=== PATIENT | female | born 1960 | race Two or more races ===

== ENCOUNTER 2017-06-08 14:37 | Emergency (ER) | payer OTHER ==
[2017-06-08 14:56] VITALS: BP 112/78; PULSE 62; TEMP 98; BMI 32.9
[2017-06-08] MEDS ORDERED: ASPIRIN 81 MG CHEWABLE TABLETS PO ONE (15:44)
--- NOTE | 2017-06-08 15:44 | PDOC ---
History of Present Illness - General History Source: Patient Exam Limitations: No Limitations - History of Present Illness Initial Comments: 06/08/17 15:46 The patient is a 56 year old female with a significant PMH of hyperlipidemia and moderate cigarette use who presents to the emergency department with generalized malaise and chest pressure beginning at approximately 2:00PM today. The patient also reports neck pain that radiated to her left shoulder beginning approximately 2-3 weeks ago that has just recently subsided. The patient took a vacation beginning on 05/19 in order to relieve her neck and shoulder pain, and recently returned to work. While at work earlier today, the patient experienced the chest pressure with associated shortness of breath and lightheadedness and was brought into the ED. The patient also reports heart palpitations within the past year, but currently does not present with palpitations. The patient denies dizziness. Denies fever, chills, nausea, vomit, diarrhea and constipation. Denies dysuria, frequency, urgency and hematuria. Allergies: NKA FHx: Diabetes Past surgical history: Knee arthroscopy. Hysterectomy. Social history: Former smoker. No reported alcohol or drug use. PCP: Dr. Lua <Salinas Moreno - Last Filed: 06/08/17 19:16> <Keron Mace - Last Filed: 06/08/17 19:25> - General Chief Complaint: Lightheaded Stated Complaint: HEAD PAIN Time Seen by Provider: 06/08/17 14:48 Past History <Salinas Moreno - Last Filed: 06/08/17 19:16> - Past Medical History Anemia: Yes (DURING ) Asthma: No Cancer: No Cardiac Disorders: No CVA: No COPD: No CHF: No Dementia: No Diabetes: No GI Disorders: No Disorders: No HTN: No Hypercholesterolemia: Yes Liver Disease: No Seizures: No Thyroid Disease: No - Surgical History Abdominal Surgery: Yes - Psycho/Social/Smoking Cessation Hx Anxiety: No Suicidal Ideation: No Smoking History: Former smoker Have you smoked in the past 12 months: Yes Number of Cigarettes Smoked Daily: 20 If you are a former smoker, when did you quit?: 05/2017 Information on smoking cessation initiated: No 'Breaking Loose' booklet given: 05/20/13 Hx Alcohol Use: No Drug/Substance Use Hx: No Substance Use Type: None Hx Substance Use Treatment: No <Keron Mace - Last Filed: 06/08/17 19:25> - Past Medical History Allergies/Adverse Reactions: Allergies Allergy/AdvReac Type Severity Reaction Status Date / Time No Known Drug Allergies Allergy Verified 06/08/17 14:57 Home Medications: Ambulatory Orders NK [No Known Home Medication] 06/08/17 Review of Systems - Review of Systems Constitutional: No: Chills, Fever HEENTM: No: Throat Swelling Respiratory: No: Cough, Shortness of Breath Cardiac (ROS): Yes: See HPI, Chest Pain, Lightheadedness, Palpitations ABD/GI: No: Diarrhea, Nausea, Vomiting Musculoskeletal: Yes: Joint Pain, Muscle Pain All Other Systems: Reviewed and Negative <Keron Mace - Last Filed: 06/08/17 19:25> *Physical Exam - Vital Signs Last Vital Signs Temp Pulse Resp BP Pulse Ox 98 F 62 18 112/78 100 06/08/17 14:47 06/08/17 14:47 06/08/17 14:47 06/08/17 14:47 06/08/17 14:47 - Physical Exam Comments: 06/08/17 15:46 GENERAL: The patient is awake, alert, and fully oriented, in no acute distress. HEAD: Normal with no signs of trauma. EYES: Pupils equal, round and reactive to light, extraocular movements intact, sclera anicteric, conjunctiva clear with no pallor. ENT: Ears normal, nares patent, oropharynx clear without exudates. Moist mucous membranes. NECK: Normal range of motion, supple without lymphadenopathy, JVD, or masses. LUNGS: Breath sounds equal, clear to auscultation bilaterally. No wheeze/ crackles. HEART: Regular rate and rhythm, normal S1 and S2 without murmur or rub. ABDOMEN: Soft/nontender/nondistended. BS wnl. No guarding or rebound. No palpable masses. No hepatosplenomegaly. EXTREMITIES: Normal range of motion, no edema. No clubbing or cyanosis. No cords, erythema, or tenderness. NEUROLOGICAL: Cranial nerves II through XII grossly intact. Normal speech, normal gait. PSYCH: Normal mood, normal affect. SKIN: Warm, Dry, normal turgor, no rashes or lesions noted. <Salians Moreno - Last Filed: 06/08/17 19:16> - Vital Signs Last Vital Signs Temp Pulse Resp BP Pulse Ox 98 F 62 18 112/78 100 06/08/17 14:47 06/08/17 14:47 06/08/17 14:47 06/08/17 14:47 06/08/17 14:47 <Keron Mace - Last Filed: 06/08/17 19:25> Heart Score/ECG Review #1 ECG reviewed & interpreted by me at: 14:53 General ECG Interpretation: Sinus Rhythm, Normal Rate (60), Normal Intervals ( qtc 436), No acute ischemic changes <Keron Mace - Last Filed: 06/08/17 19:25> ED Treatment Course - LABORATORY CBC & Chemistry Diagram: 06/08/17 15:58 06/08/17 15:58 - Consult/PCP Case discussed with consulting physician: Marcia Bentley <Salinas Moreno - Last Filed: 06/08/17 19:16> - LABORATORY CBC & Chemistry Diagram: 06/08/17 15:58 06/08/17 15:58 <Keron Mace - Last Filed: 06/08/17 19:25> Medical Decision Making - Medical Decision Making 06/08/17 15:35 A portion of this note was documented by scribe services under my direction. I have reviewed the details of the note, within reason, and agree with the documentation with the following case summary and management plan written by me. 56-year-old female with history of high cholesterol and smoking presents with episode this afternoon of chest pressure with lightheadedness. Patient has been having about 2 or 3 weeks of posterior neck discomfort radiating to her left arm , constant and nonexertional, not relieved with any medications. That pain has since resolved, she has seen Dr. Lua for feeling generally unwell and had a workup on 05/24 that was unremarkable. Pt presents today because she had acute onset of chest pressure with lightheadedness and headache while at work, has been intermittent since then. Never had chest pressure in her life, at baseline has limited exercise tolerance. No DVT or PE risk factors. Vital signs normal. No acute distress, patient experienced chest pressure during the history without any arrhythmia on monitor Exam otherwise normal 56-year-old female with high cholesterol and smoking history presents with new onset chest pressure and 2-3 weeks of feeling generally unwell with most likely musculoskeletal neck/left arm complaints. The new onset chest pressure is concerning despite normal stress test 3 or 4 months ago, her neck/arm pain may be more associated with radiculopathy. labs, ekg, cxr asa discuss with Dr. Lua, likely tele obs for cardiac monitoring 06/08/17 19:20 workup normal, negative trop and ekg. cxr normal. performed CT head given the h/o headache, no acute process and only a benign appearing pineal gland. Pt feels well, requesting discharge. Case discussed with Dr. Lua - no urgency to cardiology evaluation, was arranging f/u. Pt has cardiology appt on Monday, is ambulating comfortably. CT head negative, should have f/u MRI. Recommend MRI brain for pineal gland lesion and MRI c-spine for radicular sxs. Pt and agree with plan, will f/u with cards and Dr. Lua, understand return criteria. <Keron Mace - Last Filed: 06/08/17 19:25> *DC/Admit/Observation/Transfer - Attestations Scribe Attestion: 06/08/17 15:47 Documentation prepared by Salinas Moreno, acting as medical resident for Keron Mace MD. <Salinas Moreno - Last Filed: 06/08/17 19:16> <Keron Mace - Last Filed: 06/08/17 19:25> Diagnosis at time of Disposition: Precordial chest pain, Cervical radiculopathy - Discharge Dispostion Disposition: HOME Condition at time of disposition: Improved - Referrals Referrals: Jase Lua MD [Staff Physician] - - Patient Instructions Printed Discharge Instructions: DI for Atypical Chest Pain, DI for Cervical Radiculopathy Additional Instructions: Activity as tolerated. Stay hydrated. Blood tests, an EKG, and a chest x-ray showed no acute pathology. 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 As discussed, you should follow up with the volunteer patient representative on Monday as scheduled. Also as discussed, you should have an MRI both of the brain to further evaluate the pineal gland cyst, and also of the cervical spine to assess for possible disc disease that could be causing your neck and left arm pain. Tylenol 1000 mg every 8 hours and/or ibuprofen 600 mg every 8 hours as needed for pain. Continue your medications as previously prescribed by your physician. You should follow up with Dr. Lua as soon as possible regarding today's emergency department visit. Return to the emergency department for any new or concerning symptoms, particularly worsening or persistent pain, difficulty breathing, arm weakness/ numbness, fever/chills, severe headache for focal weakness or vomiting.
[2017-06-08] MEDS ORDERED: ASPIRIN 81 MG CHEWABLE TABLETS ONE (15:57)
[2017-06-08 16:02] LABS: BASOPHIL 0.9 % (0-2.0); EOSINOPHIL 1.6 % (0-4.5); MCH 31.7 pg (25.7-33.7); MCHC 33.6 g/dl (32.0-36.0); MEAN CELL VOLUME 94.3 fl (80-96); MEAN PLT VOLUME 7.5 fl (7.5-11.1); PLATELET COUNT 201 K/MM3 (134-434); RDW 12.9 % (11.6-15.6); WHITE BLOOD COUNT 6.7 K/mm3 (4.0-10.0)
[2017-06-08 16:34] LABS: ALBUMIN 3.6 g/dl (3.4-5.0); ANION GAP 9 (8-16); BILIRUBIN,TOTAL 0.4 mg/dL (0.2-1.0); CALCIUM 8.7 mg/dL (8.5-10.1); CO2 25 mmol/L (21-32); CREATININE 0.6 mg/dL (0.55-1.02); GLUCOSE,RANDOM 87 mg/dL (74-106); MAGNESIUM 2.1 mg/dL (1.8-2.4); SGOT/AST 24 U/L (15-37); SGPT/ALT 28 U/L (12-78); TOT PROT 6.9 g/dl (6.4-8.2)
[2017-06-08 16:36] LABS: ALK PHOS 82 U/L (45-117); CPK 157 IU/L (26-192); TROPONIN I < 0.02 ng/ml (0.00-0.05)
[2017-06-08 16:57] LABS: INR 1.04 (0.82-1.09); PROTHROMBIN TIME (PATIENT) 11.5 SEC (9.98-11.88)
--- NOTE | 2017-06-09 09:03 | EKG ---
Test Reason : Blood Pressure : / mmHG Vent. Rate : 060 BPM Atrial Rate : 060 BPM P-R Int : 136 ms QRS Dur : 080 ms QT Int : 436 ms P-R-T Axes : 008 017 019 degrees QTc Int : 436 ms NORMAL SINUS RHYTHM NORMAL ECG WHEN COMPARED WITH ECG OF 20-MAY-2013 16:20, NO SIGNIFICANT CHANGE WAS FOUND Confirmed by BOLA NUGENT MD ([id number]) on 06/09/2017 9:03:05 AM Referred By: Confirmed By:BOLA NUGENT MD
== END 2017-06-08 19:40 | disposition home or self-care (01) ==
LOC: JER 14:37
DX: R07.2 Precordial pain (principal); M54.12 Radiculopathy, cervical region
CPT/HCPCS: 36415; 70450-TC; 71020-TC; 80053; 82553; 83735; 84484; 85025; 85610; 93005; 93010; 99285-25

== ENCOUNTER 2019-04-13 12:45 | Inpatient (IN) | payer OTHER ==
[2019-04-13 13:09] VITALS: BMI 29.6
--- NOTE | 2019-04-13 14:12 | PDOC ---
History of Present Illness - General Chief Complaint: Chest Pain Stated Complaint: CHEST PAIN Time Seen by Provider: 04/13/19 13:37 - History of Present Illness Initial Comments: Kanchan Cary is a 58yo woman with a PMH of HTN, HLD who presents with one month of intermittent episodes of dizziness, chest tightness and "pressure" on the back of her head. She states that she has been getting these epsiodes for years, and they tend to occur in clusters. Recently, they restarted on 03/16/19 after being absent for several months. She says that she has been having 2-3 episodes per day, usually at work when speaking with her boss. She says that she can usually "calm herself down" and the symptoms resolve. She denies any associated SOB, diaphoresis, or vomiting. She says the episodes occur when arguing, but she says that she exercises 45 minutes 3-4 times per week and has no symptoms while working out. Ms Cary has been evaluated for similar episodes in the past; she reports having a stress test, EGD, and several other evaluations after she presented to the ED with the same symtpoms in 2017. She reports she was told that it was anxiety and she needed "to relax". She was encouraged to come in for evaluation today by her sister, who was concerned about the frequency of the recent episodes. Past History - Past Medical History Allergies/Adverse Reactions: Allergies Allergy/AdvReac Type Severity Reaction Status Date / Time No Known Drug Allergies Allergy Verified 04/13/19 13:09 Home Medications: Ambulatory Orders Rosuvastatin Calcium [Crestor] 10 mg PO HS 04/13/19 Anemia: Yes (DURING ) Asthma: No Cancer: No Cardiac Disorders: No CVA: No COPD: No CHF: No Dementia: No Diabetes: No GI Disorders: No Disorders: No HTN: No Hypercholesterolemia: Yes Liver Disease: No Seizures: No Thyroid Disease: No - Surgical History Abdominal Surgery: Yes - Suicide/Smoking/Psychosocial Hx Smoking History: Current every day smoker Have you smoked in the past 12 months: Yes Number of Cigarettes Smoked Daily: 20 If you are a former smoker, when did you quit?: 05/2017 Information on smoking cessation initiated: No 'Breaking Loose' booklet given: 05/20/13 Hx Alcohol Use: No Drug/Substance Use Hx: No Substance Use Type: None Hx Substance Use Treatment: No Review of Systems - Review of Systems Comments:: General: No fevers, no chills, no weight or appetite change, no malaise HEENT: No changes in vision, no changes in hearing, no congestion, no sore throat CV: + chest pain (tightness), no palpitations, no LE edema Pulm: No SOB, no cough, no wheezing GI: No nausea or vomiting, no change in bowel habits, no melena : No frequency, no urgency, no dysuria Musc: No back pain, no joint swelling, no recent injury Skin: No rash, no lesions, no erythema Endo: No excessive thirst, no heat/cold intolerance Heme: No unusual bruising or bleeding, no swollen glands Neuro: No syncope, no numbness/tingling, no focal weakness Vasc: No claudication Psych: No recent change in mood, no SI or HI *Physical Exam - Vital Signs Last Vital Signs Temp Pulse Resp BP Pulse Ox 97.7 F 66 18 111/71 97 04/13/19 13:06 04/13/19 13:06 04/13/19 13:06 04/13/19 13:06 04/13/19 13:06 - Physical Exam Comments: General: Comfortable, no acute distress HEENT: PERRL, EOMI, MMM, voice normal, normal neck ROM, no LAD Cards: RRR, no murmur appreciated Pulm: Comfortable on room air, clear to auscultation bilaterally Abd: Soft, nontender, nondistended Ext: Atraumatic. No LE edema. ROM intact. Vasc: Extremities WWP Skin: Normal color, no rashes or lesions Neuro: A&Ox3, CN grossly intact, normal speech, motor/sensory grossly intact and symmetric Psych: Mood appropriate to situation ED Treatment Course - LABORATORY CBC & Chemistry Diagram: 04/13/19 14:20 04/13/19 14:20 Medical Decision Making - Medical Decision Making 04/13/19 14:12 Kanchan Cary is a 58yo woman with a PMH of HTN, HLD who presents with one month of intermittent episodes of dizziness, chest tightness and "pressure" on the back of her head. The symptoms occur when at work but do not occur when exercising. She has had similar symptoms in the past with negative cardiac workup, but she has had the episodes 2-3 times per day for the past month. She was encouraged to come for evaluation by her sister. - Most likely continued anxiety, but also concerning for ACS - CBC, CMP, trop, EKG, CXR ordered - No symptoms currently, no meds at this time 04/13/19 15:47 - Labs reviewed. No concerning abnormalities. Trop negative - CXR completed, read. No acute pathology. - EKG w/ NSR, HR 64, normal axis, normal intervals, no ST changes. Normal EKG - Pt endorsed to Dr Silva that she continues to smoke. Given risk factors of age, comorbidities, smoking, pt would benefit from observation in the hospital for ACS evaluation. - Discussed w/ Marcell Oleary, will admit to Dr Lua's service. Discussed with Dr Silva. Carolynn Nathan PGY2 *DC/Admit/Observation/Transfer Diagnosis at time of Disposition: Chest tightness - Discharge Dispostion Decision to Admit order: Yes - Referrals - Patient Instructions - Post Discharge Activity
[2019-04-13 14:41] LABS: BASO % 0.2 % (0-2.0); EOS % 1.8 % (0-4.5); HEMATOCRIT 39.5 % (32.4-45.2); HEMOGLOBIN 13.4 GM/dL (10.7-15.3); LYMPH % 36.9 % (8-40); MCH 32.5 pg (25.7-33.7); MEAN CELL VOLUME 95.7 fl (80-96); MEAN PLT VOLUME 7.5 fl (7.5-11.1); MONO % 8.9 % (3.8-10.2); NEUT % 52.2 % (42.8-82.8); RBC 4.13 M/mm3 (3.60-5.2); WHITE BLOOD COUNT 7.2 K/mm3 (4.0-10.0)
[2019-04-13 14:48] LABS: PLATELET COUNT 213 K/MM3 (134-434)
[2019-04-13 14:54] LABS: INR 0.98 (0.83-1.09); PROTHROMBIN TIME (PATIENT) 11.6 SEC (9.7-13.0)
--- NOTE | 2019-04-13 14:54 | PDOC ---
Documentation entered by Kristie Shah SCRIBE, acting as scribe for Amber Silva MD. Amber Silva MD: This documentation has been prepared by the navneetibe, Kristie Shah SCRIBE, under my direction and personally reviewed by me in its entirety. I confirm that the documentation accurately reflects all work, treatment, procedures, and medical decision making performed by me. Attending Attestation - Resident Resident Name: VenitaCarolynn - ED Attending Attestation I have performed the following: I have examined & evaluated the patient, The case was reviewed & discussed with the resident, I agree w/resident's findings & plan, Exceptions are as noted - HPI HPI: 04/13/19 15:08 The patient is a 58-year-old female, with a past medical history of anemia and HLD, who presents to the ED with intermittent chest pain and shortness of breath since 03/16/19. The patient describes the pain as intermittent, tight in sensation (feels as if someone is sitting on my chest), lasting 20 minutes, nonexertional, and accompanied by shortness of breath, neck tension, and lightheadedness. The patient has noticed that the pain comes on during stressful situations at work or at home. She initially feels a nervous feeling before the chest pain comes on, followed by shortness of breath, neck tension, and lightheadedness. She has tried deep breathing exercises that helps alleviate the symptoms. She experienced a similar episode two years ago and her PCP (Dr. Powell) sent her to see a Cellophane Press Operator (Dr. Valenzuela). The patient was worked up with a holter monitor, stress test, and echo. The patient reports that she works out multiple times during the week and she has never experienced these symptoms during strenuous activity. She also reports cigarette smoking. The patient denies any fevers, chills, nausea, vomiting, diarrhea, or abdominal pain. Denies any urinary symptoms. Denies any weakness or changes in strength or sensation. - Physicial Exam PE: 04/13/19 14:46 awake alert lungs clear bilat heart rrr no mrg abd soft nt nd ext wwp no edema. no calf tenderness. 2+ dp/ pt symmetric pulses. skin warm and dry. nuero alert oriented x 3. 5/5 all four ext CN II - XII intact. sensation intact. VF intact. 04/13/19 14:47 - Medical Decision Making 04/13/19 14:48 58 yo F h/o HLD smoker, here today c/o palpitations with chest tightness. state happens during episodes of stress, usually triggered by racing heart beat, then shortness of breath and chest tightness. last usually 20 min, resolved with deep breathing. pt states has been evaluated for this before with neves monitor few years ago, stress test, and echo. denies focal weakness. pcp dr powell. on exam pt with normal heart and lung exam, normal nuerological exam differential acs, anxiety attacks, dysrhythmia, electrolyte abnormality thyroid abnormality. 04/13/19 16:07 pt labs unremarkable. ekg no acute changes. cxr normal. will admit to tele observation. pt with risk factor for acs hld, and smoking age. dW Dynamotor Repairer Kenyatta Oleary, for admission. Heart Score/ECG Review - History History: Moderately suspicious - Electrocardiogram EKG: Normal - Age Age: 45-65 - Risk Factors Risk Factors Heart Score: Yes Hx Hypercholesterolemia, Yes Smoking History, Yes Positive family hx of cardiac disease Based on the list above the patient has:: >/=3 risk factors or Hx atherosclerotic disease - Troponin Troponin: </= normal limit - Score Heart Score - Total: 4
[2019-04-13 14:57] LABS: ACTIVATED PTT 32.5 SECONDS (25.2-36.5)
[2019-04-13 15:05] LABS: ALBUMIN 3.8 g/dl (3.4-5.0); ALK PHOS 80 U/L (45-117); ANION GAP 9 MMOL/L (8-16); BILIRUBIN,TOTAL 0.4 mg/dL (0.2-1); BLOOD UREA NITROGEN 11.4 mg/dL (7-18); CALCIUM 8.6 mg/dL (8.5-10.1); CHLORIDE 108 mmol/L (98-107); CO2 25 mmol/L (21-32); CREATININE 0.6 mg/dL (0.55-1.3); GLUCOSE,RANDOM 83 mg/dL (74-106); POTASSIUM 4.1 mmol/L (3.5-5.1); SGOT/AST 23 U/L (15-37); SGPT/ALT 25 U/L (13-61); SODIUM 142 mmol/L (136-145); TOT PROT 6.9 g/dl (6.4-8.2)
--- NOTE | 2019-04-13 16:02 | EKG ---
Test Reason : Blood Pressure : / mmHG Vent. Rate : 064 BPM Atrial Rate : 064 BPM P-R Int : 144 ms QRS Dur : 074 ms QT Int : 428 ms P-R-T Axes : 019 028 023 degrees QTc Int : 441 ms NORMAL SINUS RHYTHM NORMAL ECG WHEN COMPARED WITH ECG OF 08-JUN-2017 14:53, NO SIGNIFICANT CHANGE WAS FOUND Confirmed by ERIN LAROSE MD ([id number]) on 04/13/2019 4:02:19 PM Referred By: Confirmed By:ERIN LAROSE MD
[2019-04-13] MEDS ORDERED: HEPARIN NA (PORCINE) 5,000 UNITS/ML 1ML VIAL ONE (22:45)
[2019-04-13] MEDS: HEPARIN NA (PORCINE) 5,000 UNITS/ML 1ML VIAL SQ SCH (22:45)
[2019-04-13] MEDS: ROSUVASTATIN CA 5 MG TABLET (FP) PO SCH (22:45)
[2019-04-14 07:10] LABS: BASO % 0.6 % (0-2.0); EOS % 2.8 % (0-4.5); HEMOGLOBIN 12.9 GM/dL (10.7-15.3); LYMPH % 48.7 % (8-40); MCH 32.8 pg (25.7-33.7); MCHC 33.9 g/dl (32.0-36.0); MEAN CELL VOLUME 96.8 fl (80-96); MEAN PLT VOLUME 7.6 fl (7.5-11.1); MONO % 10.6 % (3.8-10.2); NEUT % 37.3 % (42.8-82.8); PLATELET COUNT 200 K/MM3 (134-434); RBC 3.93 M/mm3 (3.60-5.2); RDW 12.9 % (11.6-15.6); WHITE BLOOD COUNT 5.8 K/mm3 (4.0-10.0)
[2019-04-14 07:38] LABS: ALBUMIN 3.4 g/dl (3.4-5.0); ALK PHOS 77 U/L (45-117); ANION GAP 5 MMOL/L (8-16); BILIRUBIN,TOTAL 0.5 mg/dL (0.2-1); BLOOD UREA NITROGEN 12.6 mg/dL (7-18); CALCIUM 8.2 mg/dL (8.5-10.1); CHLORIDE 108 mmol/L (98-107); CHOLESTEROL 165 mg/dL (50-200); CO2 30 mmol/L (21-32); CREATININE 0.7 mg/dL (0.55-1.3); GLUCOSE,RANDOM 81 mg/dL (74-106); HDL CHOLESTEROL 61 mg/dL (40-60); MAGNESIUM 2.4 mg/dL (1.8-2.4); PHOSPHOROUS 3.6 mg/dL (2.5-4.9); POTASSIUM 4.1 mmol/L (3.5-5.1); SGOT/AST 17 U/L (15-37); SGPT/ALT 23 U/L (13-61); SODIUM 142 mmol/L (136-145); TOT PROT 6.4 g/dl (6.4-8.2); TRIGLYCERIDES 84 mg/dL (0-150)
--- NOTE | 2019-04-14 08:16 | HP ---
Admitting History and Physical - Primary Care Physician PCP: Jase Lua - Admission Chief Complaint: Chest heaviness, dizziness History of Present Illness: Patient is a 58 y/o female with past medical history of HLD. Patient states that since 03/16 she has chest heaviness, dizziness, palpitations, and SOB. Patient admits to having history of anxiety and anxiety attacks but she states the symptoms she has been feeling since 03/16 is not her usual symptoms. She explains her symptoms would begin upon awakening and would last throughout the day. To try and alleviate her dizziness she would try breathing and vertigo exercises. Patient denies fever, chills, nausea, abdominal pain. History Source: Patient Limitations to Obtaining History: No Limitations - Past Medical History Cardiovascular: Yes: Hyperlipdemia Psych: Yes: Anxiety - Past Surgical History Past Surgical History: Yes: - Smoking History Smoking history: Current every day smoker Have you smoked in the past 12 months: Yes Aproximately how many cigarettes per day: 20 If you are a former smoker, when did you quit?: 05/2017 - Alcohol/Substance Use Hx Alcohol Use: No - Social History Usual Living Arrangement: Yes: With Spouse History of Recent Travel: No Home Medications - Allergies Allergies/Adverse Reactions: Allergies Allergy/AdvReac Type Severity Reaction Status Date / Time No Known Drug Allergies Allergy Verified 04/13/19 13:09 - Home Medications Home Medications: Ambulatory Orders Rosuvastatin Calcium [Crestor] 10 mg PO HS 04/13/19 Review of Systems - Review of Systems Constitutional: reports: No Symptoms Eyes: reports: No Symptoms HENT: reports: No Symptoms Neck: reports: No Symptoms Cardiovascular: reports: Palpitations, Other (chest heaviness) Respiratory: reports: SOB Gastrointestinal: reports: No Symptoms Genitourinary: reports: No Symptoms Breasts: reports: No Symptoms Reported Musculoskeletal: reports: No Symptoms Integumentary: reports: No Symptoms Neurological: reports: Dizziness Endocrine: reports: No Symptoms Hematology/Lymphatic: reports: No Symptoms Psychiatric: reports: No Symptoms Physical Examination Vital Signs: Vital Signs Temperature 97.5 F L 04/14/19 07:07 Pulse Rate 54 L 04/14/19 07:07 Respiratory Rate 18 04/14/19 07:07 Blood Pressure 122/68 04/14/19 07:07 O2 Sat by Pulse Oximetry (%) 97 04/14/19 07:07 Constitutional: Yes: No Distress, Calm Eyes: Yes: Conjunctiva Clear HENT: Yes: Atraumatic Cardiovascular: Yes: Regular Rate and Rhythm Respiratory: Yes: Regular, CTA Bilaterally Gastrointestinal: Yes: Normal Bowel Sounds, Soft Musculoskeletal: Yes: WNL Extremities: Yes: WNL Edema: No Neurological: Yes: Alert, Oriented Psychiatric: Yes: Alert, Oriented Labs: CBC, BMP 04/14/19 06:30 04/14/19 06:30 Imaging - Results Chest X-ray: Report Reviewed Problem List - Problems (1) Dizziness Assessment/Plan: -Head CT scan Code(s): R42 - DIZZINESS AND GIDDINESS (2) Chest tightness Assessment/Plan: -Cardiology consult -tele monitoring -troponin neg x 2 -aspirin 81mg daily Code(s): R07.89 - OTHER CHEST PAIN (3) Hyperlipidemia Assessment/Plan: -Crestor -fat controlled diet Code(s): E78.5 - HYPERLIPIDEMIA, UNSPECIFIED Assessment/Plan see problem list dvt ppx
[2019-04-14] MEDS: ASPIRIN COATED 81 MG TABLET.EC PO SCH (10:15)
[2019-04-14] MEDS: HEPARIN NA (PORCINE) 5,000 UNITS/ML 1ML VIAL SQ SCH ×2 (10:15→21:19)
--- NOTE | 2019-04-14 16:22 | CON.CARD ---
Consult Consult Specialty:: Cardiology Referred by:: Dr. Lua Reason for Consultation:: chest pain, palpitations. - History of Present Illness Chief Complaint: chest pain palpitations. History of Present Illness: 58 year old woman with a pmh HLD, admitted with c/o 1 month history of frequent intermittent episodes of chest heaviness, dizziness, palpitations, sob. Pt was seen and examined today in [facility]. Pt states she has had these symptoms for over 1.5 years but are worse/more frequent recently. states she had a work up with the channel executive in Dr. Merida office for these symptoms 1.5 years ago which included a stress test that was normal, echo that was normal. She had a holter monitor that was ordered for 30 days but she only wore it for 2 weeks then stopped. she states as soon as she took it off she had the symptoms so it wasnt recorded. The results of these tests are not available to review today. she had an episode of the symptoms today while on tele and noted to have 7 beats of nsvt which appear to correspond with her symptoms. currently she is comfortable asymptomatic. - History Source History Provided By: Patient, Family Member Limitations to Obtaining History: No Limitations - Past Medical History Cardio/Vascular: Yes: Hyperlipdemia Psych: Yes: Anxiety - Past Surgical History Past Surgical History: Yes: - Alcohol/Substance Use Hx Alcohol Use: No - Smoking History Smoking history: Current every day smoker Have you smoked in the past 12 months: Yes Aproximately how many cigarettes per day: 20 If you are a former smoker, when did you quit?: 05/2017 - Social History History of Recent Travel: No Home Medications - Allergies Allergies/Adverse Reactions: Allergies Allergy/AdvReac Type Severity Reaction Status Date / Time No Known Drug Allergies Allergy Verified 04/13/19 13:09 - Home Medications Home Medications: Ambulatory Orders Rosuvastatin Calcium [Crestor] 10 mg PO HS 04/13/19 Family Disease History - Family Disease History Family History: Denies Review of Systems - Review of Systems Constitutional: denies: No Symptoms, Chills, Diaphoresis, Fever, Lethargy, Loss of Appetite, Malaise, Night Sweats, Unintentional Wgt. Loss, Weakness, Other Eyes: denies: No Symptoms, Blind Spots, Blurred Vision, Double Vision, Eye Pain , Floaters, Photophobia, Recent Change in Vision, Other HENT: denies: No Symptoms, Difficult Swallowing, Ear Discharge, Ear Pain, Epistaxis, Gingival Bleeding, Hearing Loss, Mouth Swelling, Nasal Congestion, Ocular Prosthesis, Throat Pain, Toothache, Ringing in Ears, Other Neck: denies: No Symptoms, Decreased ROM, Lumps, Pain on Movement, Stiffness, Swollen Glands, Tenderness, Other Cardiovascular: reports: Chest Pain, Palpitations, Shortness of Breath. denies : No Symptoms, Edema, Other Respiratory: reports: SOB. denies: No Symptoms, Cough, Exercise Intolerance, Hemoptysis, Orthopnea, PND, Snoring, SOB on Exertion, Wheezing, Other Gastrointestinal: denies: No Symptoms, Abdominal Pain, Bloating, Constipation, Diarrhea, Dysphagia, Indigestion, Melena, Nausea, Rectal Bleeding, Vomiting, Vomiting Blood, Other Genitourinary: denies: No Symptoms, Burning, Discharge, Dysuria, Flank Pain, Frequency, Hematuria, Incontinence, Lesions, Menses, Pain, Testicular Mass, Testicular Pain, Testicular Swelling, Urgency, Vaginal Bleeding, Other Breasts: denies: No Symptoms Reported, See HPI, Breast Implants, Discharge from Nipple, Lumps, Pain, Skin Changes, Other Musculoskeletal: denies: No Symptoms, Back Pain, Crepitus, Decreased ROM, Extremity Pain, Joint Pain, Joint Swelling, Muscle Pain, Muscle Cramps, Muscle Weakness, Other Integumentary: denies: No Symptoms, Blister, Bruising, Change in Color, Eczema, Erythema, Incision, Lesions, Lump, Pallor, Pruritis, Rash, Wound, Other Neurological: reports: Headache. denies: No Symptoms, Change in LOC, Change in Speech, Confusion, Dizziness, Incoordination, Numbness, Parasthesia, Pre- Existing Deficit, Seizure, Syncope, Tremors, Unsteady Gait, Weakness, Other Endocrine: denies: No Symptoms, Excessive Sweating, Flushing, Increased Hunger, Increased Thirst, Intolerance to Cold, Intolerance to Heat, Unexplained Weight Gain, Unexplained Weight Loss, Other Hematology/Lymphatic: denies: No Symptoms, Easily Bruised, Excessive Bleeding, Swollen Glands, Other Psychiatric: denies: No Symptoms, Altered Sleep Pattern, Anxiety, Depression, Hallucinations, Panic, Paranoia, Suicidal, Other - Risk Factors Known Risk Factors: Yes: Hypercholesterolemia Vital Signs: Vital Signs Temperature 98.7 F 07/14/19 13:48 Pulse Rate 64 04/14/19 13:48 Respiratory Rate 20 04/14/19 13:48 Blood Pressure 128/69 04/14/19 13:48 O2 Sat by Pulse Oximetry (%) 99 04/14/19 12:17 Constitutional: Yes: No Distress, Calm Eyes: Yes: Conjunctiva Clear, EOM Intact, PERRL HENT: Yes: Atraumatic, Normocephalic Neck: Yes: Supple, Trachea Midline Respiratory: Yes: Regular, CTA Bilaterally. No: Rales, Rhonchi, SOB, Wheezes Gastrointestinal: Yes: Normal Bowel Sounds, Soft. No: Distention, Tenderness Cardiovascular: Yes: Regular Rate and Rhythm. No: Bradycardia, Tachycardia, Pulse Irregular, Gallop, Rub, Varicosities JVD: No Carotid Bruit: No PMI: Non-Displaced Heart Sounds: Yes: S1, S2. No: Split S2, S3, S4, Clicks, Gallop, Rub, Bruit Murmur: Yes: Systolic Murmur, Grade 2 Musculoskeletal: Yes: WNL Extremities: Yes: WNL Edema: No Peripheral Pulses WNL: Yes Neurological: Yes: Alert, Oriented Psychiatric: Yes: Alert, Oriented - Other Data Labs, Other Data: CBC, BMP 04/14/19 06:30 04/14/19 06:30 INR, PTT INR 0.98 (0.83-1.09) 04/13/19 14:20 Troponin, BNP 04/14/19 06:30 Troponin I < 0.02 Troponin, BNP 04/14/19 06:30 Troponin I < 0.02 nsr 64bpm, normal ecg Imaging - Results Chest X-ray: Report Reviewed, Image Reviewed EKG: Report Reviewed, Image Reviewed Other: Report Reviewed, Image Reviewed (tele-nsr 1 episode of 7 beats of nsvt today) Assessment/Plan 58 year old woman with a pmh HLD, admitted with c/o 1 month history of frequent intermittent episodes of chest heaviness, dizziness, palpitations, sob. Pt was seen and examined today in [facility]. Pt states she has had these symptoms for over 1.5 years but are worse/more frequent recently. states she had a work up with the channel executive in Dr. Merida office for these symptoms 1.5 years ago which included a stress test that was normal, echo that was normal. She had a holter monitor that was ordered for 30 days but she only wore it for 2 weeks then stopped. she states as soon as she took it off she had the symptoms so it wasnt recorded. The results of these tests are not available to review today. she had an episode of the symptoms today while on tele and noted to have 7 beats of nsvt which appear to correspond with her symptoms. currently she is comfortable asymptomatic. palpitations/chest tightness/sob -suspect due to PVCs/NSVT as short run NSVT seen on tele today which appears to have corresponded to her symptoms -reports normal work up 1.5 years ago for the same symptoms including stress test and echo that she says was normal, results not available to review, can obtain them from Dr. Lua's office -cont tele monitoring -plan for nuclear stress test and echo tomorrow to re-evaluate for ischemia -ensure K=4 and Mg2 -tsh wnl -cardiac enzymes wnl -ekg showed no ischemia -start Lopressor 25mg po bid and titrate as needed for PVC/NSVT suppression -keep npo after midnight tonight for stress test tomorrow
[2019-04-14] MEDS: METOPROLOL TARTRATE 25 MG TABLET (FP) PO SCH (21:17)
[2019-04-14] MEDS: ROSUVASTATIN CA 5 MG TABLET (FP) PO SCH (21:18)
[2019-04-15 07:47] LABS: HEMATOCRIT 40.1 % (32.4-45.2); HEMOGLOBIN 13.7 GM/dL (10.7-15.3); MCH 32.8 pg (25.7-33.7); MCHC 34.1 g/dl (32.0-36.0); MEAN CELL VOLUME 96.1 fl (80-96); MEAN PLT VOLUME 7.9 fl (7.5-11.1); PLATELET COUNT 207 K/MM3 (134-434); RBC 4.17 M/mm3 (3.60-5.2); RDW 12.6 % (11.6-15.6); WHITE BLOOD COUNT 6.1 K/mm3 (4.0-10.0)
[2019-04-15 08:13] LABS: ALBUMIN 3.6 g/dl (3.4-5.0); BILIRUBIN,TOTAL 0.5 mg/dL (0.2-1); BLOOD UREA NITROGEN 13.4 mg/dL (7-18); CALCIUM 8.5 mg/dL (8.5-10.1); CREATININE 0.6 mg/dL (0.55-1.3); POTASSIUM 3.9 mmol/L (3.5-5.1); TOT PROT 6.7 g/dl (6.4-8.2)
--- NOTE | 2019-04-15 12:20 | ECHO ---
Name: CARLOS DEL RIO Exam:Adult Echocardiogram Study Date: 04/15/2019 07:37 AM Age: 58 yrs Reason For Study: chest pain,navt Height: 62 in Weight: 163 lb BSA: 1.8 m2 MMode/2D Measurements & Calculations IVSd: 0.65 cm Ao root diam: 2.8 cm LVIDd: 4.4 cm LA dimension: 3.3 cm LVIDs: 3.1 cm ACS: 1.4 cm LVPWd: 0.74 cm IVSs: 0.74 cm LVPWs: 1.1 cm EDV(Teich): 86.7 ml ESV(Teich): 37.1 ml Doppler Measurements & Calculations MV E max burton: 58.7 cm/sec Ao V2 max: 126.0 cm/sec MV A max burton: 53.8 cm/sec Ao max P.4 mmHg MV E/A: 1.1 Ao V2 mean: 83.2 cm/sec Ao mean P.2 mmHg Ao V2 VTI: 29.0 cm MR max burton: 345.8 cm/sec PI end-d burton: 102.5 cm/sec MR max P.8 mmHg Med Peak E' Burton: 6.6 cm/sec Med E/e': 8.9 Lat Peak E' Burton: 9.2 cm/sec Lat E/e': 6.4 Procedure A complete two-dimensional transthoracic echocardiogram was performed (2D, M-mode, Doppler and color flow Doppler). Left Ventricle The left ventricle is normal in size. Left ventricular systolic function is normal. Ejection Fraction = 55- 60%. No regional wall motion abnormalities noted. Right Ventricle The right ventricle is normal size. The right ventricular systolic function is normal. Atria The left atrial size is normal. Right atrial size is normal. Mitral Valve The mitral valve is normal in structure and function. There is mild mitral regurgitation. Tricuspid Valve The tricuspid valve is normal in structure and function. There is mild tricuspid regurgitation. Aortic Valve There is mild aortic sclerosis.;. No aortic regurgitation is present. Pulmonic Valve The pulmonic valve is not well visualized. Mild pulmonic valvular regurgitation. Great Vessels The aortic root is normal size. Pericardium/Pleura There is no pericardial effusion. Interpretation Summary The left ventricle is normal in size. Left ventricular systolic function is normal. No regional wall motion abnormalities noted. Ejection Fraction = 55-60%. The right ventricular systolic function is normal. The left atrial size is normal. Right atrial size is normal. There is mild mitral regurgitation. There is mild tricuspid regurgitation. There is mild aortic sclerosis.; Mild pulmonic valvular regurgitation. There is no pericardial effusion. Duke Cast MD 04/15/2019 12:19 PM
--- NOTE | 2019-04-15 12:53 | PN ---
Progress Note, Physician Chief Complaint: Chest pain History of Present Illness: NAD symptoms resolved Just returned from Nuclear stress test Echo-unremarkable - Current Medication List Current Medications: Active Medications Aspirin (Ecotrin -) 81 mg PO DAILY [facility] Last Admin: 04/14/19 10:15 Dose: 81 mg Heparin Sodium (Porcine) (Heparin -) 5,000 unit SQ BID [facility] Last Admin: 04/14/19 21:19 Dose: 5,000 unit Metoprolol Tartrate (Lopressor -) 25 mg PO BID [facility] Last Admin: 04/14/19 21:17 Dose: 25 mg Rosuvastatin Calcium (Crestor -) 10 mg PO HS [facility] Last Admin: 04/14/19 21:18 Dose: 10 mg - Objective Vital Signs: Vital Signs Temperature 97.5 F L 04/15/19 08:35 Pulse Rate 60 04/15/19 08:35 Respiratory Rate 18 04/15/19 08:35 Blood Pressure 130/69 04/15/19 08:35 O2 Sat by Pulse Oximetry (%) 99 04/15/19 08:38 Constitutional: Yes: Well Nourished, No Distress, Calm Cardiovascular: Yes: Regular Rate and Rhythm Respiratory: Yes: Regular Gastrointestinal: Yes: Normal Bowel Sounds, Soft Genitourinary: Yes: WNL Musculoskeletal: Yes: WNL Extremities: Yes: WNL Edema: No Peripheral Pulses WNL: Yes Neurological: Yes: Alert, Oriented Psychiatric: Yes: Alert, Oriented Labs: CBC, BMP 04/15/19 07:00 04/15/19 07:00 INR, PTT INR 0.98 (0.83-1.09) 04/13/19 14:20 Assessment/Plan (1) Dizziness Assessment/Plan: -Head CT scan negative Code(s): R42 - DIZZINESS AND GIDDINESS (2) Chest tightness Assessment/Plan: -Cardiology consult -tele monitoring -troponin neg x 3 -aspirin 81mg daily -echo unremarkable -NST results pending-if negative, can be discharged home Code(s): R07.89 - OTHER CHEST PAIN (3) Hyperlipidemia Assessment/Plan: -Crestor -fat controlled diet Code(s): E78.5 - HYPERLIPIDEMIA, UNSPECIFIED
[2019-04-15] MEDS: HEPARIN NA (PORCINE) 5,000 UNITS/ML 1ML VIAL SQ SCH (13:35)
[2019-04-15] MEDS: ASPIRIN COATED 81 MG TABLET.EC PO SCH (13:36)
[2019-04-15 13:47] VITALS: PULSE 74
--- NOTE | 2019-04-15 14:37 | PN ---
Progress Note, Physician Chief Complaint: No recurrent chest pain or palpitations No recurrent NSVT on tele History of Present Illness: 58 year old woman with a pmh HLD, admitted with c/o 1 month history of frequent intermittent episodes of chest heaviness, dizziness, palpitations, sob. Pt was seen and examined today in [facility]. Pt states she has had these symptoms for over 1.5 years but are worse/more frequent recently. states she had a work up with the olive grower in Dr. Merida office for these symptoms 1.5 years ago which included a stress test that was normal, echo that was normal. She had a holter monitor that was ordered for 30 days but she only wore it for 2 weeks then stopped. she states as soon as she took it off she had the symptoms so it wasnt recorded. The results of these tests are not available to review today. she had an episode of the symptoms today while on tele and noted to have 7 beats of nsvt which appear to correspond with her symptoms. currently she is comfortable asymptomatic. - Current Medication List Current Medications: Active Medications Aspirin (Ecotrin -) 81 mg PO DAILY [facility] Last Admin: 04/15/19 13:36 Dose: 81 mg Heparin Sodium (Porcine) (Heparin -) 5,000 unit SQ BID [facility] Last Admin: 04/15/19 13:35 Dose: 5,000 unit Metoprolol Tartrate (Lopressor -) 25 mg PO BID [facility] Last Admin: 04/14/19 21:17 Dose: 25 mg Rosuvastatin Calcium (Crestor -) 10 mg PO HS [facility] Last Admin: 04/14/19 21:18 Dose: 10 mg - Objective Vital Signs: Vital Signs Temperature 97.8 F 04/15/19 13:46 Pulse Rate 74 04/15/19 13:46 Respiratory Rate 18 04/15/19 13:46 Blood Pressure 101/63 04/15/19 13:46 O2 Sat by Pulse Oximetry (%) 99 04/15/19 08:38 Constitutional: Yes: No Distress Neck: Yes: Supple Cardiovascular: Yes: Regular Rate and Rhythm, S1, S2. No: JVD, Murmur Respiratory: Yes: CTA Bilaterally Gastrointestinal: Yes: WNL Extremities: Yes: WNL Edema: No Labs: CBC, BMP 04/15/19 07:00 04/15/19 07:00 INR, PTT INR 0.98 (0.83-1.09) 04/13/19 14:20 Problem List - Problems (1) Chest tightness Code(s): R07.89 - OTHER CHEST PAIN Assessment/Plan 58 year old woman with a pmh HLD, admitted with c/o 1 month history of frequent intermittent episodes of chest heaviness, dizziness, palpitations, sob. Pt was seen and examined today in [facility]. Pt states she has had these symptoms for over 1.5 years but are worse/more frequent recently. states she had a work up with the olive grower in Dr. Merida office for these symptoms 1.5 years ago which included a stress test that was normal, echo that was normal. She had a holter monitor that was ordered for 30 days but she only wore it for 2 weeks then stopped. she states as soon as she took it off she had the symptoms so it wasnt recorded. The results of these tests are not available to review today. she had an episode of the symptoms today while on tele and noted to have 7 beats of nsvt which appear to correspond with her symptoms. currently she is comfortable asymptomatic. palpitations/chest tightness/sob -suspect due to PVCs/NSVT as short run NSVT seen on tele yesterday -Echocardiogram with normal LVEF and no significant valve disease. NST with normal myocardial perfusion. No ischemia. -No recurrence of NSVT on tele on low dose metoprolol -tsh wnl -cardiac enzymes wnl -ekg showed no ischemia -when goes home D/C on low dose metoprolol 12.5mg bid and with outpatient follow up with Cardiology at Dr. Lua's office. Will sign off at this time. No further cardiac work up.
[2019-04-15] MEDS: METOPROLOL TARTRATE 25 MG TABLET (FP) PO SCH (15:16)
[2019-04-15 17:19] VITALS: BP 105/61; TEMP 97.6
== END 2019-04-15 18:25 | disposition home or self-care (01) | DRG 313 ==
LOC: JER 12:45 → JERBED 15:46 → OBSVTOIN 16:18 → J4S 04-14 12:56
PROVIDERS: ADMIT Family Medicine; ATTEND Family Medicine
DX: R07.89 Other chest pain (principal); R00.0 Tachycardia, unspecified; E78.5 Hyperlipidemia, unspecified; I10 Essential (primary) hypertension; F17.210 Nicotine dependence, cigarettes, uncomplicated; F41.9 Anxiety disorder, unspecified; R42 Dizziness and giddiness; R00.2 Palpitations
CPT/HCPCS: 36415; 70450-TC; 71046-TC-FY; 78452-TC; 80053; 80061; 82550; 82553; 83721; 83735; 84100; 84436; 84443; 84484; 85025; 85027; 85610; 85730; 93005; 93010; 93017; 93306-TC; 99285-25; A9502; G0378; J1644

== ENCOUNTER 2022-06-20 09:47 | Inpatient (IN) | payer BC, OTHER ==
[2022-06-16 17:59] VITALS: BMI 32.7
[2022-06-20] MEDS ORDERED: MIDAZOLAM HCL 2 MG/2 ML SINGLE DOSE VIAL ONE (09:54)
[2022-06-20] MEDS ORDERED: TRANEXAMIC ACID 1000 MG/10 ML VIAL ONE (09:54)
[2022-06-20] MEDS ORDERED: ONDANSETRON 4 MG/2 ML VIAL ONE (09:54)
[2022-06-20] MEDS ORDERED: ceFAZolin SODIUM 1 GM VIAL ONE (09:54)
[2022-06-20] MEDS ORDERED: PROPOFOL 40 ML ONE (09:54)
[2022-06-20] MEDS ORDERED: LIDOCAINE HCL/PF 2% SDV 5ML VIAL ONE (09:54)
[2022-06-20] MEDS ORDERED: FENTANYL CITRATE/PF 50 MCG/ML VIAL ONE (11:00)
[2022-06-20] MEDS ORDERED: BUPIVACAINE HCL/PF 0.5% (5 MG/ML) 30 ML VIAL IJ ONE (11:00)
[2022-06-20] MEDS ORDERED: BUPIVACAINE HCL/PF 0.5% (5MG/ML) 10 ML VIAL ONE (11:01)
[2022-06-20] MEDS ORDERED: VANCOMYCIN 1,000 MG VIAL (RESTRICTED TO ID ONLY) ONE ×2 (11:23→11:29)
[2022-06-20] MEDS ORDERED: CEFAZOLIN 2 GM in DEXTROSE 5%-WATER - 50 ML IVPB ONE (12:00)
[2022-06-20] MEDS ORDERED: TRANEXAMIC ACID 1000 MG/10 ML VIAL IVPUSH ONE (12:00)
[2022-06-20] MEDS ORDERED: PROPOFOL 20 ML ONE ×2 (15:23→15:57)
[2022-06-20] MEDS ORDERED: BUPIVICAINE 0.25%/MORPH PF/KETOROLAC - 51ML DISP.SYRINGE IA ONE (15:27)
[2022-06-20] MEDS ORDERED: MAG HYDROX/AL HYDROX/SIMETH 30 ML UNIT-DOSE CUP PO PRN (15:44)
[2022-06-20] MEDS ORDERED: MAGNESIUM HYDROX 2400MG/30ML ORAL SUSPENSION 30 ML CUP PO PRN (15:44)
[2022-06-20] MEDS ORDERED: ONDANSETRON 4 MG/2 ML VIAL IVPUSH PRN ×2 (15:44→16:40)
[2022-06-20] MEDS ORDERED: LACTATED RINGERS SOLUTION 1,000 ML IV SCH ×2 (15:45→16:45)
[2022-06-20] MEDS ORDERED: ACETAMINOPHEN 1000 MG/100 ML BAG IVPB ONE (16:40)
[2022-06-20] MEDS ORDERED: HYDROmorphone HCl 2 MG/ML VIAL IVPUSH PRN ×2 (16:40)
[2022-06-20] MEDS ORDERED: ACETAMINOPHEN INJECTION 100 ML IVPB ONE (17:20)
[2022-06-20] MEDS ORDERED: CEFAZOLIN SODIUM 2 GM in DEXTROSE 5%-WATER 100 ML IVPB SCH (18:00)
[2022-06-20] MEDS: GABAPENTIN 300 MG CAPSULE PO SCH (21:12)
[2022-06-20] MEDS: CEFAZOLIN SODIUM 2 GM in DEXTROSE 5%-WATER 100 ML IVPB SCH (21:12)
[2022-06-20] MEDS: PANTOPRAZOLE 40 MG TABLET PO SCH (21:12)
[2022-06-20] MEDS: ASPIRIN 325 MG TABLET PO SCH (21:13)
[2022-06-20] MEDS: oxyCODONE HCL 5 MG TABLET PO PRN (21:13)
[2022-06-20] MEDS: CYANOCOBALAMIN 1,000 MCG TABLET (FP) PO SCH (21:13)
[2022-06-20] MEDS: ROSUVASTATIN CA 10 MG TABLET PO SCH (21:13)
[2022-06-20] MEDS: oxyCODONE HCL 10 MG SUSTAINED ACTING TABLET PO SCH (21:14)
[2022-06-20] MEDS: METOPROLOL TARTRATE 25 MG TABLET (FP) PO SCH (21:19)
[2022-06-20] MEDS: SENNOSIDES/DOCUSATE COMBO (SENNA PLUS) TABLET (UD) PO SCH (23:35)
[2022-06-21] MEDS: ACETAMINOPHEN 500 MG TABLET (FP) PO SCH ×4 (02:23→17:16)
[2022-06-21] MEDS: CEFAZOLIN SODIUM 2 GM in DEXTROSE 5%-WATER 100 ML IVPB SCH ×2 (04:52→15:18)
[2022-06-21 07:26] LABS: HEMATOCRIT 35.2 % (32.4-45.2); HEMOGLOBIN 12.2 G/dL (10.7-15.3); MCH 33.4 pg (25.7-33.7); MCHC 34.8 g/dl (32.0-36.0); MEAN CELL VOLUME 96.2 fl (80-96); MEAN PLT VOLUME 7.7 fl (7.5-11.1); PLATELET COUNT 162.6 10^3/uL (134-434); RBC 3.66 10^6/uL (3.60-5.2); RDW 13.1 % (11.6-15.6); WHITE BLOOD COUNT 8.6 10^3/uL (4.0-10.8)
[2022-06-21 07:29] LABS: CALCIUM 8.2 mg/dl (8.5-10); CREATININE 0.7 mg/dl (0.55-1.3)
[2022-06-21] MEDS: oxyCODONE HCL 5 MG TABLET PO PRN ×2 (08:04→16:59)
[2022-06-21] MEDS: oxyCODONE HCL 10 MG SUSTAINED ACTING TABLET PO SCH ×2 (09:51→21:03)
[2022-06-21] MEDS: ASPIRIN 325 MG TABLET PO SCH ×2 (09:52→21:03)
[2022-06-21] MEDS: MULTIVITAMINS (DAILY MVI) TABLET (FP) PO SCH (09:52)
[2022-06-21] MEDS: SENNOSIDES/DOCUSATE COMBO (SENNA PLUS) TABLET (UD) PO SCH ×2 (09:52→21:03)
[2022-06-21] MEDS: GABAPENTIN 300 MG CAPSULE PO SCH ×2 (09:52→21:03)
[2022-06-21] MEDS ORDERED: PANTOPRAZOLE 40 MG TABLET PO SCH (10:00)
[2022-06-21] MEDS ORDERED: PATIENT'S OWN MEDICATION (NON-FORMULARY) (Olmesartan Medoxomil 20 MG Tablet) PO SCH (10:00)
[2022-06-21] MEDS: LOSARTAN POTASSIUM 50 MG TABLET PO SCH (10:04)
[2022-06-21] MEDS: METOPROLOL TARTRATE 25 MG TABLET (FP) PO SCH ×2 (11:22→21:03)
[2022-06-21] MEDS: ROSUVASTATIN CA 10 MG TABLET PO SCH (21:03)
[2022-06-21] MEDS: PANTOPRAZOLE 40 MG TABLET PO SCH (21:03)
[2022-06-21] MEDS: CYANOCOBALAMIN 1,000 MCG TABLET (FP) PO SCH (21:03)
[2022-06-22] MEDS: ACETAMINOPHEN 500 MG TABLET (FP) PO SCH ×3 (05:00→11:52)
[2022-06-22] MEDS: MULTIVITAMINS (DAILY MVI) TABLET (FP) PO SCH (09:16)
[2022-06-22] MEDS: GABAPENTIN 300 MG CAPSULE PO SCH (09:17)
[2022-06-22] MEDS: ASPIRIN 325 MG TABLET PO SCH (09:17)
[2022-06-22] MEDS: SENNOSIDES/DOCUSATE COMBO (SENNA PLUS) TABLET (UD) PO SCH (09:17)
[2022-06-22] MEDS: oxyCODONE HCL 5 MG TABLET PO PRN (09:20)
[2022-06-22] MEDS: oxyCODONE HCL 10 MG SUSTAINED ACTING TABLET PO SCH (09:21)
[2022-06-22] MEDS: LOSARTAN POTASSIUM 50 MG TABLET PO SCH (09:24)
[2022-06-22] MEDS: METOPROLOL TARTRATE 25 MG TABLET (FP) PO SCH (09:24)
[2022-06-22 09:51] VITALS: BP 95/52; PULSE 95; RESP 16; TEMP 98.7
[2022-06-22 11:40] LABS: HEMATOCRIT 34.7 % (32.4-45.2); HEMOGLOBIN 11.9 G/dL (10.7-15.3); MCHC 34.2 g/dl (32.0-36.0); MEAN CELL VOLUME 96.3 fl (80-96); MEAN PLT VOLUME 7.4 fl (7.5-11.1); PLATELET COUNT 151.3 10^3/uL (134-434); RDW 13.9 % (11.6-15.6); WHITE BLOOD COUNT 10.3 10^3/uL (4.0-10.8)
== END 2022-06-22 13:49 | disposition home or self-care (01) | DRG 470 ==
LOC: FM/S 09:47
PROVIDERS: ATTEND Orthopaedic Surgery Sports Medicine
PROC: 0SRB03A Replacement of Left Hip Joint with Ceramic Synthetic Substitute, Uncemented, Open Approach (ICD-10-PCS; principal; 2022-06-20 13:54)
DX: M16.12 Unilateral primary osteoarthritis, left hip (principal)
CPT/HCPCS: 36415; 72170-TC-FY; 80048; 84484; 85027; 88305-TC; 88311-TC; 93005; 94760; 97010-GP; 97116-GP; 97162-GP

== ENCOUNTER 2022-10-08 22:11 | Observation (INO) | payer BC, OTHER ==
[2022-10-08 22:32] VITALS: RESP 18; BMI 34.0
[2022-10-08 23:51] LABS: BASO % 0.6 % (0-2.0); EOS % 2.6 % (0-4.5); HEMATOCRIT 41.6 % (32.4-45.2); HEMOGLOBIN 13.4 GM/dL (10.7-15.3); MCH 29.6 pg (25.7-33.7); MCHC 32.3 g/dl (32.0-36.0); MEAN CELL VOLUME 91.7 fl (80-96); MEAN PLT VOLUME 7.2 fl (7.5-11.1); MONO % 13.1 % (3.8-10.2); NEUT % 50.7 % (42.8-82.8); PLATELET COUNT 229 10^3/uL (134-434); RBC 4.54 M/mm3 (3.60-5.2); RDW 14.5 % (11.6-15.6); WHITE BLOOD COUNT 8.4 K/mm3 (4.0-10.0)
[2022-10-08 23:57] LABS: INR 0.97 (0.83-1.09); PROTHROMBIN TIME (PATIENT) 11.2 SEC (9.7-13.0)
[2022-10-09] LABS: ACTIVATED PTT 31.2 SECONDS (25.2-36.5)
[2022-10-09 00:20] LABS: ALBUMIN 3.6 g/dl (3.4-5.0); CALCIUM 9.1 mg/dL (8.5-10.1)
[2022-10-09 00:21] LABS: BLOOD UREA NITROGEN 18.8 mg/dL (7-18)
[2022-10-09 00:23] LABS: CREATININE 0.6 mg/dL (0.55-1.3)
[2022-10-09 00:25] LABS: BILIRUBIN,TOTAL 0.2 mg/dL (0.2-1); TOT PROT 6.9 g/dl (6.4-8.2)
[2022-10-09] MEDS ORDERED: ACETAMINOPHEN 325 MG TABLET (FP) PO PRN (03:05)
[2022-10-09] MEDS ORDERED: SODIUM CHLORIDE 500 ML IV STA (03:12)
[2022-10-09] MEDS ORDERED: KETOROLAC TROMETHAMINE 15 MG/ML VIAL IVPUSH ONE (03:17)
[2022-10-09] MEDS ORDERED: SODIUM CHLORIDE 1,000 ML IV ONE (04:00)
[2022-10-09 08:36] LABS: BASO % 0.3 % (0-2.0); EOS % 3.5 % (0-4.5); HEMOGLOBIN 12.7 GM/dL (10.7-15.3); LYMPH % 45.2 % (8-40); MCH 29.8 pg (25.7-33.7); MCHC 32.6 g/dl (32.0-36.0); MEAN CELL VOLUME 91.2 fl (80-96); MEAN PLT VOLUME 7.6 fl (7.5-11.1); MONO % 14.7 % (3.8-10.2); NEUT % 36.3 % (42.8-82.8); PLATELET COUNT 204 10^3/uL (134-434); RBC 4.28 M/mm3 (3.60-5.2); RDW 14.2 % (11.6-15.6); WHITE BLOOD COUNT 6.2 K/mm3 (4.0-10.0)
[2022-10-09 08:43] LABS: CALCIUM 8.7 mg/dL (8.5-10.1)
[2022-10-09 08:44] LABS: BLOOD UREA NITROGEN 19.8 mg/dL (7-18); MAGNESIUM 2.1 mg/dL (1.8-2.4)
[2022-10-09 08:47] LABS: CREATININE 0.5 mg/dL (0.55-1.3); PHOSPHOROUS 4.5 mg/dL (2.5-4.9)
[2022-10-09] MEDS: ENOXAPARIN NA (PORCINE) 40 MG/0.4 ML DISP.SYRIN SQ SCH (10:35)
[2022-10-09] MEDS: METOPROLOL TARTRATE 25 MG TABLET (FP) PO SCH ×2 (10:36→22:15)
[2022-10-09] MEDS ORDERED: PANTOPRAZOLE 40 MG TABLET PO SCH (22:00)
[2022-10-09] MEDS ORDERED: CYANOCOBALAMIN 1,000 MCG TABLET (FP) PO SCH (22:00)
[2022-10-09] MEDS ORDERED: ROSUVASTATIN CA 10 MG TABLET PO SCH (22:00)
[2022-10-10] MEDS ORDERED: REGADENOSON 0.4 MG/5 ML PRE-FILLED SYRINGE IVPUSH ONE ×2 (09:24→09:45)
[2022-10-10] MEDS: METOPROLOL TARTRATE 25 MG TABLET (FP) PO SCH (12:34)
[2022-10-10] MEDS: ENOXAPARIN NA (PORCINE) 40 MG/0.4 ML DISP.SYRIN SQ SCH (12:35)
[2022-10-10 18:46] VITALS: BP 111/56; PULSE 62; TEMP 98.1
== END 2022-10-10 18:46 | disposition home or self-care (01) ==
LOC: JER 22:11 → JERBED 10-09 02:18 → J4W 10-09 04:41
PROVIDERS: ADMIT Internal Medicine; ATTEND Family Medicine
PROC: 3E023GC Introduction of Other Therapeutic Substance into Muscle, Percutaneous Approach (ICD-10-PCS; principal; 2022-10-09)
PROC: 3E0333Z Introduction of Anti-inflammatory into Peripheral Vein, Percutaneous Approach (ICD-10-PCS; 2022-10-09)
PROC: 3E033GC Introduction of Other Therapeutic Substance into Peripheral Vein, Percutaneous Approach (ICD-10-PCS; 2022-10-09)
PROC: 3E0337Z Introduction of Electrolytic and Water Balance Substance into Peripheral Vein, Percutaneous Approach (ICD-10-PCS; 2022-10-09)
DX: R07.89 Other chest pain (principal); E66.8 Other obesity; Z68.34 Body mass index [BMI] 34.0-34.9, adult; R00.2 Palpitations; Z87.891 Personal history of nicotine dependence
CPT/HCPCS: 0241U-QW; 36415; 71046-TC-FY; 78452-TC; 80048; 80053; 80061; 83036; 83735; 84100; 84439; 84443; 84484; 85025; 85379; 85610; 85730; 93005; 93010; 93017; 96361; 96372; 96374; 96375; 99285-25; A9502; G0378; J2785

== ENCOUNTER 2023-11-28 18:36 | Emergency (ER) | payer OTHER ==
[2023-11-28 19:04] VITALS: BP 117/69; PULSE 89; RESP 17; TEMP 98.2; BMI 32.5
[2023-11-28 21:10] LABS: BASO % 0.5 % (0-2.0); EOS % 1.8 % (0-4.5); HEMATOCRIT 42.4 % (32.4-45.2); HEMOGLOBIN 14.2 GM/dL (10.7-15.3); LYMPH % 34.9 % (8-40); MCHC 33.5 g/dl (32.0-36.0); MEAN CELL VOLUME 95.4 fl (80-96); MEAN PLT VOLUME 7.2 fl (7.5-11.1); MONO % 9.2 % (3.8-10.2); NEUT % 53.6 % (42.8-82.8); PLATELET COUNT 209 10^3/uL (134-434); RBC 4.44 M/mm3 (3.60-5.2); WHITE BLOOD COUNT 8.8 K/mm3 (4.0-10.0)
[2023-11-28 21:33] LABS: POTASSIUM 4.1 mmol/L (3.5-5.1)
[2023-11-28 21:35] LABS: ALBUMIN 3.4 g/dl (3.4-5.0); CALCIUM 8.7 mg/dL (8.5-10.1); MAGNESIUM 2.3 mg/dL (1.8-2.4)
[2023-11-28 21:36] LABS: BLOOD UREA NITROGEN 18.5 mg/dL (7-18)
[2023-11-28 21:39] LABS: CREATININE 0.7 mg/dL (0.55-1.3)
[2023-11-28 21:40] LABS: BILIRUBIN,TOTAL 0.2 mg/dL (0.2-1); TOT PROT 6.8 g/dl (6.4-8.2)
== END 2023-11-28 23:40 | disposition home or self-care (01) ==
LOC: JER 18:36
DX: R00.2 Palpitations (principal); R42 Dizziness and giddiness; R06.02 Shortness of breath
CPT/HCPCS: 36415; 71046-TC-FY; 80053; 83735; 84439; 84443; 84484; 85025; 93005; 93010; 99285-25

== ENCOUNTER 2024-03-27 23:25 | Emergency (ER) | payer OTHER ==
[2024-03-27 23:36] VITALS: BMI 31.8
[2024-03-28 00:52] LABS: BASO % 0.9 % (0-2.0); EOS % 2.2 % (0-4.5); HEMATOCRIT 39.2 % (32.4-45.2); HEMOGLOBIN 13.2 GM/dL (10.7-15.3); MCH 32.1 pg (25.7-33.7); MCHC 33.5 g/dl (32.0-36.0); MEAN CELL VOLUME 95.7 fl (80-96); MEAN PLT VOLUME 7.4 fl (7.5-11.1); MONO % 9.5 % (3.8-10.2); NEUT % 44.4 % (42.8-82.8); PLATELET COUNT 195 10^3/uL (134-434); RDW 13.6 % (11.6-15.6); WHITE BLOOD COUNT 7.7 K/mm3 (4.0-10.0)
[2024-03-28 01:15] LABS: INR 0.89 (0.83-1.09); PROTHROMBIN TIME (PATIENT) 10.1 SEC (9.7-13.0)
[2024-03-28 01:18] LABS: ACTIVATED PTT 28.2 SECONDS (25.2-36.5)
[2024-03-28 01:21] LABS: POTASSIUM 3.9 mmol/L (3.5-5.1)
[2024-03-28 01:23] LABS: ALBUMIN 3.3 g/dl (3.4-5.0); BLOOD UREA NITROGEN 21.8 mg/dL (7-18); CALCIUM 8.2 mg/dL (8.5-10.1)
[2024-03-28 01:26] LABS: CREATININE 0.7 mg/dL (0.55-1.3)
[2024-03-28 01:28] LABS: BILIRUBIN,TOTAL 0.2 mg/dL (0.2-1); TOT PROT 6.4 g/dl (6.4-8.2)
[2024-03-28 02:38] VITALS: RESP 17; TEMP 97.3
[2024-03-28] MEDS: LACTATED RINGERS SOLUTION 1000 ML INFUS.BAG IV ONE (02:59)
[2024-03-28 04:58] VITALS: BP 122/79; PULSE 57
== END 2024-03-28 06:20 | disposition home or self-care (01) ==
LOC: JER 23:25
DX: R00.2 Palpitations (principal); R07.89 Other chest pain; R42 Dizziness and giddiness
CPT/HCPCS: 36415; 71046-TC-FY; 80053; 84439; 84443; 84484; 85025; 85610; 85730; 93005; 93010; 99285-25

== ENCOUNTER → 2025-01-02 | Day surgery (SDC) | payer OTHER ==
[2025-01-01 17:38] VITALS: BMI 32.9
[~2025-01-02] MED LIST: ACETAMINOPHEN 500 MG TABLET (FP) PO PRN; DEXAMETHASONE SOD PHOSPHATE 10 MG/1 ML VIAL ONE; LIDOCAINE HCL/PF 1% SDV 5ML VIAL ONE
[2025-01-02 06:39] VITALS: RESP 18; TEMP 97.4
[2025-01-02] MEDS: DEXAMETHASONE SOD PHOSPHATE 10 MG/1 ML VIAL IVPUSH ONE ×2 (07:36→08:43)
[2025-01-02] MEDS: LIDOCAINE HCL 1% PRESERVATIVE FREE - 30ML VIAL IJ ONE ×2 (07:38→08:43)
[2025-01-02] MEDS: IOHEXOL 180 MG/1 ML ML IJ ONE ×2 (07:39→08:43)
[2025-01-02 09:11] VITALS: BP 146/85; PULSE 68
== END ==
LOC: JASU-SURG 06:51
PROVIDERS: ATTEND Pain Medicine Pain Medicine
PROC: 3E0R3BZ Introduction of Anesthetic Agent into Spinal Canal, Percutaneous Approach (ICD-10-PCS; 2025-01-02)
PROC: 3E0R33Z Introduction of Anti-inflammatory into Spinal Canal, Percutaneous Approach (ICD-10-PCS; principal; 2025-01-02 11:00)
DX: M54.16 Radiculopathy, lumbar region (principal)
CPT/HCPCS: 76000-TC-FY; J1100

== ENCOUNTER 2025-04-24 06:10 | Day surgery (SDC) | payer OTHER ==
[2025-04-24] MEDS ORDERED: LIDOCAINE HCL/PF 2% SDV 5ML VIAL ONE (07:34)
[2025-04-24] MEDS ORDERED: BUPIVACAINE HCL/PF 0.25% (2.5MG/ML) 10 ML VIAL ONE (07:34)
[2025-04-24] MEDS ORDERED: TRIAMCINOLONE ACET 40MG/1ML VIAL ONE (07:34)
[2025-04-24] MEDS ORDERED: LIDOCAINE HCL/PF 1% SDV 5ML VIAL ONE (07:35)
[2025-04-24] MEDS ORDERED: BUPIVACAINE HCL/PF 0.5% (5MG/ML) 10 ML VIAL ONE (07:35)
[2025-04-24] MEDS ORDERED: ACETAMINOPHEN 500 MG TABLET (FP) PO PRN (09:05)
[2025-04-24] MEDS: LIDOCAINE HCL 1% PRESERVATIVE FREE - 30ML VIAL IJ ONE ×2 (09:53)
[2025-04-24] MEDS: IOHEXOL 180 MG/1 ML ML IJ ONE ×2 (09:54)
[2025-04-24] MEDS: BUPIVACAINE HCL/PF 0.5% (5MG/ML) 10 ML VIAL IJ ONE ×2 (09:54)
[2025-04-24] MEDS: TRIAMCINOLONE ACET 40MG/1ML VIAL IM ONE ×2 (09:55)
[2025-04-24 13:26] VITALS: BP 136/84; PULSE 57; RESP 18; TEMP 98
== END 2025-04-24 10:40 | disposition home or self-care (01) ==
LOC: JASU-SURG 06:10
PROVIDERS: ATTEND Pain Medicine Pain Medicine
PROC: 3E0U3BZ Introduction of Anesthetic Agent into Joints, Percutaneous Approach (ICD-10-PCS; 2025-04-24)
PROC: 3E0U33Z Introduction of Anti-inflammatory into Joints, Percutaneous Approach (ICD-10-PCS; principal; 2025-04-24 10:00)
DX: M16.11 Unilateral primary osteoarthritis, right hip (principal)
CPT/HCPCS: 76000-TC-FY

== ENCOUNTER 2025-07-25 06:10 | Day surgery (SDC) | payer OTHER ==
[2025-07-22 15:06] VITALS: BMI 32.9
[2025-07-25] MEDS ORDERED: TRIAMCINOLONE ACET 40MG/1ML VIAL ONE (07:10)
[2025-07-25] MEDS ORDERED: LIDOCAINE HCL/PF 1% SDV 5ML VIAL ONE (07:11)
[2025-07-25] MEDS ORDERED: BUPIVACAINE HCL/PF 0.5% (5MG/ML) 10 ML VIAL ONE (07:11)
[2025-07-25] MEDS ORDERED: ACETAMINOPHEN 500 MG TABLET (FP) PO PRN (08:41)
[2025-07-25 11:00] VITALS: TEMP 97.5
[2025-07-25 12:21] VITALS: BP 118/77; PULSE 61; RESP 18
== END 2025-07-25 10:19 | disposition home or self-care (01) ==
LOC: JASU-SURG 06:10
PROVIDERS: ATTEND Pain Medicine Pain Medicine
PROC: 3E0U3BZ Introduction of Anesthetic Agent into Joints, Percutaneous Approach (ICD-10-PCS; 2025-07-25)
PROC: 3E0U33Z Introduction of Anti-inflammatory into Joints, Percutaneous Approach (ICD-10-PCS; principal; 2025-07-25 08:40)
DX: M53.3 Sacrococcygeal disorders, not elsewhere classified (principal)
CPT/HCPCS: 76000-TC-FY